=== PATIENT | female | born 1990 | race Caucasian/White ===

== ENCOUNTER 2019-08-15 14:19 | Emergency (ER) | payer SELFPAY ==
--- OUTSIDE RECORDS SUMMARY | 2019-08-15 14:23 | XMS REPORT ---
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 Kathryn Joann [facility] Encounter - Ambulatory [facility] Encounter Services Provider [facility] Shruti Jaime [facility] Encounter Services Provider [facility] Shruti Sandoval [facility] Encounter Services Provider [facility] Shruti Sandoval [facility] VITAL SIGNS No Information Available Allergies No Known Allergy Information REASON FOR REFERRAL No Information Available RESULTS Date Observation Value Provider Reference Interpretation Loc ation Range / beta HCG, urine, negative Kathryn 10 semiquantitative Joann / HIV rapid test negative Shruti Sandoval 04 results HISTORY OF IMMUNIZATIONS No Information Available Medications No Known Medication Information SOCIAL HISTORY Date Observation Value Provider HIV behavioural goal 1 To be substance free Jenna blue Baezo " 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 Xanax/Valium/Ativan), crystal meth " Site - PrEP on Sexual Risk 9000 - B Shruti Sandoval Prophylaxis " Funding Source - PrEP on [facility] Shruti pal Sexual Risk Prophylaxis " high risk sexual behaviors Yes Shrutiemeka Baezo " Have you ever received or No Shruti Sandoval given money for drugs or sex? " sex at Female Shruti Jaime " sexual orientation Heterosexual Shruti Sandoval " Gender that patient is Men Shruti brock attracted to " Gender of previous sexual Men Shruti Sandoval partner(s) " Gender of current sexual Men Shruti Lurdes pal partner(s) FUNCTIONAL STATUS No Information Available MENTAL STATUS No Information Available MEDICAL EQUIPMENT No Information Available FAMILY HISTORY No Information Available INSURANCE PROVIDERS Payer name Policy type / Coverage type Covered part y ID Primary Health Care Cristian Other [id number] [facility] Fee - Cat 0 - [facility] [employer] Commercial insurance [facility] [id number] ADVANCE DIRECTIVES No Information Available TREATMENT PLAN Date Name Health Education/Supportive Counseling HISTORY OF PROCEDURES Procedure Date Procedure Name Provider Procedure Notes Status Health Public Health completed Education/Supportive Services Provider Counseling GOALS No Information Available HEALTH CONCERNS No Information Available
--- NOTE | 2019-08-15 15:12 | EDPHYS ---
Physician Documentation [facility] Name: Yoanna Alcaraz Age: 28 yrs Sex: Female : 1990 Arrival Date: 08/15/2019 Time: 14:22 Bed 14 Private MD: ED Physician Ciara Dickerson HPI: 08/14 15:06 This 28 yrs old Female presents to ER via Ambulatory with complaints of jr8 swollen area. 15:06 the patient presents with a swollen area of the abdomen. Description: The affected area jr8 is small, well demarcated, draining, erythematous. Onset: The symptoms/episode began/occurred gradually. Possible cause(s): unknown. Associated signs and symptoms: Pertinent positives: fever. Severity of symptoms: At their worst the symptoms were mild, in the emergency department the symptoms are unchanged. The patient has not experienced similar symptoms in the past. The patient has not recently seen a physician. Stated that she had swollen tense region to left side of abdomen near pelvic crest that dehisced and was draining. Stated that it is improving but still present. Has been running fevers. Currently at [facility] and was started on Azithromycin today. Historical: - Allergies: 14:47 No Known Allergies; em - PMHx: 14:47 None; em - PSHx: 14:47 Tonsillectomy; em - Immunization history:: Adult Immunizations up to date. - Social history:: Smoking status: Patient reports the use of cigarette tobacco products, smokes one-half pack cigarettes per day. ROS: 15:06 Eyes: Negative for injury, pain, redness, and discharge, ENT: Negative for injury, jr8 pain, and discharge, Neck: Negative for injury, pain, and swelling, Cardiovascular: Negative for chest pain, palpitations, and edema, Respiratory: Negative for shortness of breath, cough, wheezing, and pleuritic chest pain, Abdomen/GI: Negative for abdominal pain, nausea, vomiting, diarrhea, and constipation, Back: Negative for injury and pain, MS/Extremity: Negative for injury and deformity, Neuro: Negative for headache, weakness, numbness, tingling, and seizure. 15:06 Constitutional: Positive for fever. 15:06 Skin: Positive for abscess. Exam: 15:06 Eyes: Pupils equal round and reactive to light, extra-ocular motions intact. Lids and jr8 lashes normal. Conjunctiva and sclera are non-icteric and not injected. Cornea within normal limits. Periorbital areas with no swelling, redness, or edema. ENT: Nares patent. No nasal discharge, no septal abnormalities noted. Tympanic membranes are normal and external auditory canals are clear. Oropharynx with no redness, swelling, or masses, exudates, or evidence of obstruction, uvula midline. Mucous membranes moist. Neck: Trachea midline, no thyromegaly or masses palpated, and no cervical lymphadenopathy. Supple, full range of motion without nuchal rigidity, or vertebral point tenderness. No Meningismus. Cardiovascular: Sinus Tachycardia with a normal S1 and S2. No gallops, murmurs, or rubs. Normal PMI, no JVD. No pulse deficits. Respiratory: Lungs have equal breath sounds bilaterally, clear to auscultation and percussion. No rales, rhonchi or wheezes noted. No increased work of breathing, no retractions or nasal flaring. Abdomen/GI: Soft, non-tender, with normal bowel sounds. No distension or tympany. No guarding or rebound. No evidence of tenderness throughout. Back: No spinal tenderness. No costovertebral tenderness. Full range of motion. MS/ Extremity: Pulses equal, no cyanosis. Neurovascular intact. Full, normal range of motion. Neuro: Awake and alert, GCS 15, oriented to person, place, time, and situation. Cranial nerves II-XII grossly intact. Motor strength 5/5 in all extremities. Sensory grossly intact. Cerebellar exam normal. Normal gait. 15:06 Skin: small open wound noted to left abdomen near pelvic crest. Mild erythema surrounds wound. No cellulitis. No fluctuance or induration. Vital Signs: 14:41 BP 123 / 80; Pulse 114; Resp 20; Temp 98.8(O); Pulse Ox 99% ; Weight 66.68 kg; Height 5 em ft. 4 in. (162.56 cm); Pain 6/10; 14:41 Body Mass Index 25.23 (66.68 kg, 162.56 cm) em MDM: 15:05 Patient medically screened. [facility] 15:06 Data reviewed: vital signs, nurses notes, and as a result, I will discharge patient. jr8 Data interpreted: Pulse oximetry: on room air is 99 %. Interpretation: normal. Counseling: I had a detailed discussion with the patient and/or guardian regarding: the historical points, exam findings, and any diagnostic results supporting the discharge/admit diagnosis, the need for outpatient follow up, a family practitioner, to return to the emergency department if symptoms worsen or persist or if there are any questions or concerns that arise at home. ED course: Discussed with patient to stop the azithromycin and start bactrim. To f/u with PCP soon . Administered Medications: 15:24 Drug: Bactrim (160 mg-800 mg (DS) 1 tablet Route: PO; vc 15:25 Follow up: Response: No adverse reaction; Medication administered at discharge. vc Disposition: 08/15/19 15:11 Discharged to Home. Impression: Cutaneous abscess of abdominal wall. - Condition is Stable. - Discharge Instructions: Skin Abscess. - Prescriptions for Bactrim DS 800- 160 mg Oral Tablet - take 1 tablet by ORAL route every 12 hours for 10 days; 20 tablet. - Medication Reconciliation Form, Thank You Letter, Antibiotic Education, Prescription Opioid Use form. - Follow up: Private Physician; When: 5 - 6 days; Reason: Wound Recheck, Recheck today's complaints, Continuance of care, Re-evaluation by your physician. - Problem is new. - Symptoms are unchanged. Addendum: 08/17/2019 18:21 Co-signature as Attending Physician, Ciara Dickerson MD. m a2 Signatures: Hermann Gomez, RN RN Rosalio Baeza PA PA jr8 Ciara Dickerson MD MD ma2 Chely Soliz RN RN vc Corrections: (The following items were deleted from the chart) 08/14 15:31 15:11 08/15/2019 15:11 Discharged to Home. Impression: Cutaneous abscess of abdominal vc wall. Condition is Stable. Forms are Medication Reconciliation Form, Thank You Letter, Antibiotic Education, Prescription Opioid Use. Follow up: Private Physician; When: 5 - 6 days; Reason: Wound Recheck, Recheck today's complaints, Continuance of care, Re-evaluation by your physician. Problem is new. Symptoms are unchanged. jr8
--- NOTE | 2019-08-15 15:12 | ER ---
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 Coronavirus screen: Patient denies a cough. Patient denies shortness of breath or difficulty breathing. Patient reports a measured and/or subjective temperature greater than 100.4F. Patient denies travel on a cruise ship or to a country the [facility] currently lists as an affected area. Patient denies contact with known and/or suspected case of COVID-19. Ebola Screen: Patient negative for fever greater than or equal to 101.5 degrees Fahrenheit, and additional compatible Ebola Virus Disease symptoms Patient denies exposure to infectious person. Patient denies travel to an Ebola-affected area in the 21 days before illness onset. No symptoms or risks identified at this time. Initial Sepsis Screen: Does the patient meet any 2 criteria? HR > 90 bpm. Does the patient have a suspected source of infection? Yes: Skin breakdown/wound. Risk Assessment: Do you want to hurt yourself or someone else? Patient reports no desire to harm self or others. Onset of symptoms was August 11, 2019. 14:41 Method Of Arrival: Ambulatory em 14:41 Acuity: KARYNA 3 em Triage Assessment: 15:11 Bite description: bite sustained to left lower quadrant by an unknown animal. General: vc Appears in no apparent distress. uncomfortable. 15:11 Bite description: animal information: vaccination(s) is not applicable. vc 15:11 General: Behavior is calm, cooperative, appropriate for age. vc Historical: - Allergies: 14:47 No Known Allergies; em - PMHx: 14:47 None; em - PSHx: 14:47 Tonsillectomy; em - Immunization history:: Adult Immunizations up to date. - Social history:: Smoking status: Patient reports the use of cigarette tobacco products, smokes one-half pack cigarettes per day. Screenin:09 Abuse screen: Denies threats or abuse. Nutritional screening: No deficits noted. vc Tuberculosis screening: No symptoms or risk factors identified. Fall Risk None identified. Assessment: 15:03 General: Appears in no apparent distress. uncomfortable, Behavior is calm, cooperative, vc appropriate for age. Pain: Complains of pain in left lower quadrant Pain does not radiate. Pain currently is 7 out of 10 on a pain scale. at worst was 10 out of 10 on a pain scale. Quality of pain is described as pressure, throbbing, Pain began 4 days ago. Neuro: Level of Consciousness is awake, alert, obeys commands, Oriented to person, place, time, situation, Appropriate for age. Cardiovascular: Capillary refill < 3 seconds Patient's skin is warm and dry. Respiratory: Airway is patent Respiratory effort is even, unlabored, Respiratory pattern is regular, symmetrical. GI: Abdomen is flat, draining wound on left side of lower abdomen. : No signs and/or symptoms were reported regarding the genitourinary system. EENT: No signs and/or symptoms were reported regarding the EENT system. Derm: Skin Intact, healthy with good turgor except wound on lower left abdomen. Musculoskeletal: Circulation, motion, and sensation intact. Range of motion: intact in all extremities. 15:03 Derm: Skin is normal, Wound noted left lower quadrant Wound is Open and has purulent vc draininge. Vital Signs: 14:41 BP 123 / 80; Pulse 114; Resp 20; Temp 98.8(O); Pulse Ox 99% ; Weight 66.68 kg; Height 5 em ft. 4 in. (162.56 cm); Pain 6/10; 14:41 Body Mass Index 25.23 (66.68 kg, 162.56 cm) em ED Course: 14:22 Patient arrived in ED. mr 14:45 Triage completed. em 14:47 Arm band placed on. em 14:51 Rosalio Murry PA is PHCP. jr8 14:51 Ciara Dickerson MD is Attending Physician. jr8 15:02 Chely Soliz RN is Primary Nurse. vc 15:13 Patient has correct armband on for positive identification. Bed in low position. Pulse vc ox on. NIBP on. 15:26 No provider procedures requiring assistance completed. Patient did not have IV access vc during this emergency room visit. Administered Medications: 15:24 Drug: Bactrim (160 mg-800 mg (DS) 1 tablet Route: PO; vc 15:25 Follow up: Response: No adverse reaction; Medication administered at discharge. vc Outcome: 15:11 Discharge ordered by MD. michelle 15:26 Discharged to home ambulatory, Patients ride is on the way to take her back to the [facility]. 15:26 Condition: good 15:26 Discharge instructions given to patient, Instructed on discharge instructions, follow up and referral plans. medication usage, Demonstrated understanding of instructions, follow-up care, medications, Prescriptions given X 1. 15:31 Patient left the ED. 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
[2019-08-15] MEDS ORDERED: SMZ./TMP. 800/160 MG TABLET ONE (15:26)
[2019-08-15 15:45] VITALS: BP 123/80; TEMP 98.8; O2SAT 99
== END 2019-08-15 15:31 | disposition home or self-care (01) ==
LOC: ER 14:19
DX: L02.211 Cutaneous abscess of abdominal wall (principal); F17.210 Nicotine dependence, cigarettes, uncomplicated
CPT/HCPCS: 99283

== ENCOUNTER 2019-08-20 08:35 | Emergency (ER) | payer SELFPAY ==
[2019-08-20] MEDS ORDERED: ONDANSETRON 4 MG/2 ML VIAL ONE (09:04)
[2019-08-20 09:33] LABS: Absolute Lymphocytes (CBC) 3.2 K/uL (0.7-4.9); Basophils % 0.9 % (0-1.3); Hematocrit 43.1 % (36.0-45.0); Lymphocytes % 40.7 % (15.3-44.8); MPV 12.1 fL (7.6-11.3); RBC Red Blood Cell Count 4.74 M/uL (3.86-4.86)
[2019-08-20 10:04] LABS: Albumin 3.4 g/dL (3.4-5.0); Bilirubin Direct 2.2 mg/dL (0-0.2); Bilirubin Total 2.8 mg/dL (0.2-1.0); Potassium 3.9 mmol/L (3.5-5.1); Protein, Total 8.2 g/dL (6.4-8.2)
[2019-08-20 10:08] LABS: Urine Blood TRACE (NEG); Urine Glucose NEGATIVE (NEG); Urine Protein 1+ (NEG); Urine pH 7.5 (5.0-7.0)
--- NOTE | 2019-08-20 11:45 | RAD REPORT ---
EXAM DESCRIPTION: CT - Abdomen Pelvis W Contrast - 08/20/2019 11:19 am CLINICAL HISTORY: upper abdomen pain, elevated liver enzymes COMPARISON: Abdomen Exam Limited dated 08/20/2019 TECHNIQUE: Biphasic, helical CT imaging of the abdomen and pelvis was performed following 100 ml non -ionic IV contrast. No oral contrast given. All CT scans are performed using dose optimization technique as appropriate and may include automated exposure control or mA/KV adjustment according to patient size. FINDINGS: No suspicious findings in the lung bases. Liver and spleen show no suspicious findings. Spleen is prominent in size though without focal abnorm ality. Spleen is 14 cm in craniocaudal dimension. No mass within the pancreatic parenchyma identifiab le. No peripancreatic edema or stranding. No abnormal biliary tree dilatation. Gallbladder is contrac lucia which accentuates wall thickness. There is questionable amount of pericholecystic fluid. Stones a nd sludge can be occult on CT imaging. Symmetric renal function is seen with no hydronephrosis or suspicious renal mass. No pyelonephritis o r acute parenchymal process. No bladder abnormalities. No adrenal abnormalities. Uterus and ovaries s how no suspicious findings. Ovaries are isodense to the adjacent on opacified bowel. No dilated bowel loops or bowel wall thickening. Cecum is positioned along the right floor the pelvis . The appendix is normal. Patient has moderate stool volume in the colon. No free air, free fluid or inflammatory stranding. No hernia, mass or bulky lymphadenopathy. No suspicious bony findings. IMPRESSION: Gallbladder is only partially filled. This accentuates wall thickness. There is question able trace amount of pericholecystic fluid. Biliary tree is not dilated. Correlation can be made with separately reported ultrasound findings. No pancreatic or peripancreatic abnormality. Upper abdominal structures are otherwise unremarkable. Moderate stool volume throughout the colon with no acute colon process. The appendix is normal. No acute or significant or CARDING UTILITY TENDER process.
[2019-08-20 12:09] LABS: Anisocytosis 1+; Blood Morphology Comment NOTED (NOT SEEN); Platelet Estimate ADEQ
--- NOTE | 2019-08-20 12:41 | RAD REPORT ---
EXAM DESCRIPTION: US - Abdomen Exam Limited - 08/20/2019 10:59 am CLINICAL HISTORY: upper abdomen pain;N/V COMPARISON: No comparisons FINDINGS: Gallbladder is mostly contracted. This accentuates wall thickness limiting ability to asse ss for acute cholecystitis. At sonography no pericholecystic fluid confirmed. There is suspected to b e a trace amount of sludge in the gallbladder lumen but no stones. No common duct stone or biliary tree dilatation identified. IMPRESSION: No gallstones identified. A trace amount of sludge is suspected. Gallbladder is only partially filled which accentuates wall thickness. No biliary tree dilatation identified. CT findings for questionable for cholecystitis. Ultrasound findings are less concerning. Correlation is needed with clinical presentation.
--- NOTE | 2019-08-20 14:34 | ER ---
Nurse's Notes [facility] Name: Yoanna Alcaraz Age: 28 yrs Sex: Female : 1990 Arrival Date: 08/20/2019 Time: 08:37 Bed 8 Private MD: Diagnosis: Abnormal results of liver function studies;Upper abdominal pain, unspecified Presentation: 08/19 08:52 Chief complaint: Patient states: vomiting since last Tuesday after getting prescribed em some ABXs for bug bite, reports epigastric pain, 09/11 denies diarrhea or fever. Coronavirus screen: Proceed with normal triage. Patient denies a cough. Patient denies shortness of breath or difficulty breathing. Patient denies measured and/or subjective temperature greater than 100.4F prior to today's visit. Patient denies travel on a cruise ship or to a country the [facility] currently lists as an affected area. Patient denies contact with known and/or suspected case of COVID-19. Ebola Screen: Patient negative for fever greater than or equal to 101.5 degrees Fahrenheit, and additional compatible Ebola Virus Disease symptoms Patient denies exposure to infectious person. Patient denies travel to an Ebola-affected area in the 21 days before illness onset. No symptoms or risks identified at this time. Initial Sepsis Screen: Does the patient meet any 2 criteria? No. Patient's initial sepsis screen is negative. Does the patient have a suspected source of infection? No. Patient's initial sepsis screen is negative. Risk Assessment: Do you want to hurt yourself or someone else? Patient reports no desire to harm self or others. Onset of symptoms was August 14, 2019. 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 - Social history:: Smoking status: Patient denies any tobacco usage or history of. Screenin:54 Abuse screen: Denies threats or abuse. Nutritional screening: No deficits noted. em Tuberculosis screening: No symptoms or risk factors identified. Fall Risk None identified. Assessment: 09:00 General: Appears in no apparent distress. Behavior is calm, cooperative. Pain: Pain hb currently is 3 out of 10 on a pain scale. Neuro: Level of Consciousness is awake, alert, obeys commands, Oriented to person, place, time, situation. Cardiovascular: Capillary refill < 3 seconds Patient's skin is warm and dry. Respiratory: Airway is patent Respiratory effort is even, unlabored, Respiratory pattern is regular, symmetrical. GI: Abdomen is non-distended, Reports cramping, nausea. : No signs and/or symptoms were reported regarding the genitourinary system. EENT: No signs and/or symptoms were reported regarding the EENT system. Derm: Skin is pink, warm \T\ dry. Musculoskeletal: No signs and/or symptoms reported regarding the musculoskeletal system. 09:25 Reassessment: Patient appears in no apparent distress at this time. Patient states em feeling better. Patient states symptoms have improved. 10:30 Reassessment: Patient appears in no apparent distress at this time. Patient and/or em family updated on plan of care and expected duration. Pain level reassessed. Patient is alert, oriented x 3, equal unlabored respirations, skin warm/dry/pink. Patient states feeling better. 13:23 Reassessment: Patient appears in no apparent distress at this time. Patient and/or em family updated on plan of care and expected duration. Pain level reassessed. Patient is alert, oriented x 3, equal unlabored respirations, skin warm/dry/pink. 14:30 Reassessment: Patient appears in no apparent distress at this time. Patient is alert, hb oriented x 3, equal unlabored respirations, skin warm/dry/pink. Patient is alert/active/playful, equal unlabored respirations, skin warm/dry/pink. 15:30 Reassessment: Patient appears in no apparent distress at this time. Patient and/or em family updated on plan of care and expected duration. Pain level reassessed. Patient is alert, oriented x 3, equal unlabored respirations, skin warm/dry/pink. 16:45 Reassessment: Report given to BOBBI Freeman. 17:39 Reassessment: Patient appears in no apparent distress at this time. report given to em EMS. Vital Signs: 08:52 BP 114 / 88; Pulse 86; Resp 18; Temp 98.0; Pulse Ox 98% on R/A; Weight 68.04 kg; Height em 5 ft. 4 in. (162.56 cm); Pain 6/10; 10:30 BP 111 / 80; Pulse 76; Resp 18; Pulse Ox 99% on R/A; em 11:35 BP 97 / 64; Pulse 70; Resp 16; Pulse Ox 100% on R/A; em 13:23 BP 105 / 72; Pulse 69; Resp 18; Pulse Ox 99% on R/A; em 14:40 BP 107 / 70; Pulse 68; Resp 15; Pulse Ox 99% on R/A; hb 15:30 BP 111 / 78; Pulse 68; Resp 18; Pulse Ox 99% on R/A; em 16:30 BP 109 / 74; Pulse 72; Resp 18; Pulse Ox 99% on R/A; em 08:52 Body Mass Index 25.75 (68.04 kg, 162.56 cm) em ED Course: 08:37 Patient arrived in ED. mr 08:40 Teddy Carr PA is PHCP. cp 08:40 Anup Cantor MD is Attending Physician. cp 08:47 Hermann Gomez, BOBBI is Primary Nurse. em 08:54 Triage completed. em 08:54 Arm band placed on. em 08:54 Patient has correct armband on for positive identification. Placed in gown. Bed in low em position. Call light in reach. Side rails up X2. Pulse ox on. NIBP on. 08:57 Inserted saline lock: 20 gauge in right antecubital area, using aseptic technique. hb Blood collected. 10:59 US Abdomen Limited In Process Unspecified. EDMS 11:18 CT Abd/Pelvis - IV Contrast Only In Process Unspecified. EDMS 11:18 CT completed. Patient tolerated procedure well. Patient moved to CT via wheelchair. sj Patient moved back from CT. 14:55 ETOH Level Sent, Acetaminophen Sent. jp3 15:00 Urine collected: clean catch specimen, clear, david colored, Legal drug screen obtained jp3 per protocol. 16:30 Hepatitis Panel Sent. jp3 17:38 No provider procedures requiring assistance completed. Patient transferred, IV remains em in place. Administered Medications: 09:02 Drug: Zofran (Ondansetron) 4 mg Route: IVP; Site: right antecubital; em 09:25 Follow up: Response: No adverse reaction; Marked relief of symptoms; Nausea is decreasedem 15:56 Drug: NS 0.9% 1000 ml Route: IV; Rate: 1 bolus; Site: right antecubital; em 17:42 Follow up: IV Status: Completed infusion; IV Intake: 1000ml em Intake: 17:42 IV: 1000ml; Total: 1000ml. em Outcome: 14:33 ER care complete, transfer ordered by . cp 17:38 Transferred by ground EMS to [facility], Transfer form completed. em X-rays sent w/ patient. 17:38 Condition: stable 17:38 Instructed on the need for admit, Demonstrated understanding of instructions. 17:42 Patient left the ED. em Signatures: Dispatcher [employer] BRIT EugenioKelin mr Membreno, Hermann Chavis, RN BOBBI em Lydia Raymond RN RN ss Teddy Carr PA PA cp Baxter, Heather, RN RN Carlos Naylor jp3 Corrections: (The following items were deleted from the chart) 15:11 15:10 ETHANOL+C.LAB.BRZ drawn and sent. jp3 jp3 15:11 15:10 ACETAMINOPHEN+C.LAB.BRZ drawn and sent. jp3 jp3 16:42 16:37 ACUTE HEPATITIS PANEL+R.LAB.BRZ drawn and sent. jp3 jp3
--- NOTE | 2019-08-20 14:34 | EDPHYS ---
Physician Documentation [facility] Name: Yoanna Alcaraz Age: 28 yrs Sex: Female : 1990 Arrival Date: 08/20/2019 Time: 08:37 Bed 8 Private MD: ED Physician Anup Cantor HPI: 08/19 08:46 This 28 yrs old Female presents to ER via Unassigned with complaints of cp Vomiting. 08:46 The patient presents to the emergency department with nausea, that is mild, vomiting, cp that is intermittent, 1 times today. Onset: The symptoms/episode began/occurred last week. Possible causes: antibiotics, Bactrim. Associated signs and symptoms: Pertinent positives: abdominal pain, Pertinent negatives: constipation, diarrhea, fever. 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 - Social history:: Smoking status: Patient denies any tobacco usage or history of. ROS: 08:55 Constitutional: Negative for body aches, chills, fever, poor PO intake. cp 08:55 Eyes: Negative for injury, pain, redness, and discharge. cp 08:55 ENT: Negative for drainage from ear(s), ear pain, sore throat, difficulty swallowing, difficulty handling secretions. 08:55 Cardiovascular: Negative for chest pain, palpitations. 08:55 Respiratory: Negative for cough, shortness of breath, wheezing. 08:55 Abdomen/GI: Positive for abdominal pain, nausea and vomiting, Negative for diarrhea, constipation, hematemesis, black/tarry stool, rectal bleeding. 08:55 Back: Positive for radiated pain. 08:55 : Negative for urinary symptoms. 08:55 Skin: Negative for rash. 08:55 Neuro: Negative for altered mental status, headache, syncope, weakness. 08:55 All other systems are negative. Exam: 09:00 Constitutional: The patient appears in no acute distress, alert, awake, non-toxic, well cp developed, well nourished. 09:00 Head/Face: Normocephalic, atraumatic. cp 09:00 Eyes: Periorbital structures: appear normal, Conjunctiva: normal, no exudate, no injection, Sclera: no appreciated abnormality, Lids and lashes: appear normal, bilaterally. 09:00 ENT: External ear(s): are unremarkable, Nose: is normal, Mouth: Lips: moist, Oral mucosa: pink and intact, moist, Posterior pharynx: is normal, airway is patent, no erythema, no exudate. 09:00 Chest/axilla: Inspection: normal, Palpation: is normal, no crepitus, no tenderness. 09:00 Cardiovascular: Rate: normal, Rhythm: regular. 09:00 Respiratory: the patient does not display signs of respiratory distress, Respirations: normal, no use of accessory muscles, no retractions, labored breathing, is not present, Breath sounds: are clear throughout, no decreased breath sounds. 09:00 Abdomen/GI: Inspection: abdomen appears normal, Bowel sounds: active, all quadrants, Palpation: soft, in all quadrants, moderate abdominal tenderness, in the epigastric area and right upper quadrant, voluntary guarding, is elicited in the epigastric area and right upper quadrant. 09:00 Back: pain, that is moderate. 09:00 Neuro: Orientation: to person, place \T\ time. Mentation: is normal. Vital Signs: 08:52 BP 114 / 88; Pulse 86; Resp 18; Temp 98.0; Pulse Ox 98% on R/A; Weight 68.04 kg; Height em 5 ft. 4 in. (162.56 cm); Pain 6/10; 10:30 BP 111 / 80; Pulse 76; Resp 18; Pulse Ox 99% on R/A; em 11:35 BP 97 / 64; Pulse 70; Resp 16; Pulse Ox 100% on R/A; em 13:23 BP 105 / 72; Pulse 69; Resp 18; Pulse Ox 99% on R/A; em 14:40 BP 107 / 70; Pulse 68; Resp 15; Pulse Ox 99% on R/A; hb 15:30 BP 111 / 78; Pulse 68; Resp 18; Pulse Ox 99% on R/A; em 16:30 BP 109 / 74; Pulse 72; Resp 18; Pulse Ox 99% on R/A; em 08:52 Body Mass Index 25.75 (68.04 kg, 162.56 cm) em MDM: 08:42 Patient medically screened. cp 09:00 Differential diagnosis: gastritis, cholecystitis, pancreatitis, appendicitis, viral cp gastroenteritis, gastroenteritis, choledocholithiasis, medication reaction. 13:55 Data reviewed: vital signs, nurses notes, lab test result(s), radiologic studies, CT cp scan, ultrasound. 13:55 Counseling: I had a detailed discussion with the patient and/or guardian regarding: the historical points, exam findings, and any diagnostic results supporting the discharge/admit diagnosis, lab results, radiology results. Response to treatment: the patient's symptoms have markedly improved after treatment. 14:35 Physician consultation: was contacted at 14:30, regarding regarding transfer, to [facility]. DR Ramsey, hospitalist, will accept patient as transfer. 08/19 08:46 Order name: Basic Metabolic Panel; Complete Time: 11:07 08/19 10:22 Interpretation: Normal except: GFR 78. 08/19 08:46 Order name: CBC with Diff; Complete Time: 13:50 08/19 10:22 Interpretation: Normal except: PLT 134; MPV 12.1; LENORA% 39.1; MN% 15.0. 08/19 08:46 Order name: Hepatic Function; Complete Time: 11:07 08/19 11:58 Interpretation: Normal except: AST 1318; ALT 1783; ALK 236; BILIT 2.8; BILID 2.2; GLOB cp 4.8; A/G 0.7. 08/19 08:46 Order name: Lipase; Complete Time: 11:07 08/19 10:25 Interpretation: Within normal limits: LIP 118. 08/19 09:40 Order name: Urine Dipstick--Ancillary (enter results); Complete Time: 10:22 08/19 10:22 Interpretation: Normal except: UBLD TRACE; UPH 7.5; UPROT 1+. 08/19 09:40 Order name: Urine --Ancillary (enter results); Complete Time: 10:22 08/19 09:40 Order name: Manual Differential; Complete Time: 13:50 EDMS 08/19 10:24 Order name: US Abdomen Limited; Complete Time: 13:50 08/19 11:08 Order name: CT Abd/Pelvis - IV Contrast Only; Complete Time: 11:56 05/18 14:05 Order name: Acetaminophen; Complete Time: 15:55 cp 08/19 14:05 Order name: UDS; Complete Time: 15:34 cp 08/19 14:05 Order name: ETOH Level; Complete Time: 15:55 cp 08/19 16:00 Order name: Hepatitis Panel cp 08/19 08:46 Order name: IV Saline Lock; Complete Time: 09:03 cp 08/19 08:46 Order name: Labs collected and sent; Complete Time: 09:03 cp 08/19 08:46 Order name: Urine Dipstick-Ancillary (obtain specimen); Complete Time: 09:45 cp 08/19 08:46 Order name: Urine Test (obtain specimen); Complete Time: 09:45 cp 08/19 10:24 Order name: NPO; Complete Time: 10:45 cp Administered Medications: 09:02 Drug: Zofran (Ondansetron) 4 mg Route: IVP; Site: right antecubital; em 09:25 Follow up: Response: No adverse reaction; Marked relief of symptoms; Nausea is decreasedem 15:56 Drug: NS 0.9% 1000 ml Route: IV; Rate: 1 bolus; Site: right antecubital; em 17:42 Follow up: IV Status: Completed infusion; IV Intake: 1000ml em Disposition: 18:51 Co-signature as Attending Physician, Anup Cantor MD. rn Disposition: 08/20/19 14:33 Transfer ordered to [facility]. Diagnosis are Abnormal results of liver function studies, Upper abdominal pain, unspecified. - Reason for transfer: Higher level of care. - Accepting physician is doctor. - Condition is Stable. - Problem is new. - Symptoms have improved. Signatures: Dispatcher [employer] Hermann Amador, RN RN Anup Roberts MD MD rn Page, Corey, PA PA cp Corrections: (The following items were deleted from the chart) 11:58 10:23 Normal except: AST 1318; ALT 1783; ALK 236; BILIT 2.8; BILID 2.2; GLOB 4.8. cp cp 16:45 14:33 08/20/2019 14:33 Transfer ordered to [facility]. cp Diagnosis is Abnormal results of liver function studies. Reason for transfer: Higher level of care. Accepting physician is doctor. Condition is Stable. Problem is new. Symptoms have improved. cp 17:42 16:45 08/20/2019 14:33 Transfer ordered to [facility]. em Diagnosis is Abnormal results of liver function studies; Upper abdominal pain, unspecified. Reason for transfer: Higher level of care. Accepting physician is doctor. Condition is Stable. Problem is new. Symptoms have improved. cp
[2019-08-20 15:33] LABS: Barbiturates NEGATIVE (NEGATIVE); Benzodiazepines NEGATIVE (NEGATIVE); Cocaine NEGATIVE (NEGATIVE); METHAMPHETAM NEGATIVE (NEGATIVE); Methadone NEGATIVE (NEGATIVE); Opiates NEGATIVE (NEGATIVE); Phencyclidine NEGATIVE (NEGATIVE); THC Cannibis NEGATIVE (NEGATIVE)
[2019-08-20] MEDS ORDERED: NA CHLORIDE 0.9% 1,000 ML ONE (16:00)
[2019-08-20 18:03] VITALS: TEMP 98
[2019-08-20 18:07] VITALS: O2SAT 99
[2019-08-20 18:11] VITALS: BP 109/74
== END 2019-08-20 17:42 | disposition short-term general hospital (02) ==
LOC: ER 08:35
DX: R94.5 Abnormal results of liver function studies (principal); R10.10 Upper abdominal pain, unspecified
CPT/HCPCS: 36415; 74177; 76705; 80048; 80074; 80076; 80307; 80320; 80329; 81003; 81025; 83690; 85025; 96361; 96374; 99285; J2405; J7030